=== PATIENT | female | born 1955 | race Caucasian/White ===

== ENCOUNTER 2017-11-10 07:26 | Outpatient (CLI) | payer OTHER ==
--- NOTE | 2017-11-10 09:32 | CT ---
CT ABDOMEN AND PELVIS WITH AND WITHOUT CONTRAST: History: Hematuria. Comparison: CT from outside facility, 08-27-12. FINDINGS: Lung bases are clear. No pericardial effusion. There is no nephroureterolithiasis or hydroureteral nephrosis. No secondary evidence of recently pass ed stone. There is mild prominence of the ureters without overt hydroureteronephrosis. No abnormal renal enhancing mass. No filling defects within the renal collecting systems. Mild enthesopathic changes of the adductor lo ngus muscles bilaterally from the origin of the pubic body. Moderate facet arthrosis, lower lumbar spine. Hepatic cysts are similar. There is cholelithiasis. The spleen is unremarkable. 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 There is mild atrophy of the indirect head of the rectus femoris muscles bilaterally. IMPRESSION: 1. No nephroureterolithiasis or hydroureteronephrosis. No secondary evidence of recently passed stone . 2. Multifocal hepatic cysts. A few of these have increased in size. 3. Cholelithiasis. 4. Dilatation of gonial veins can be seen with pelvic congestion syndrome. 5. Mild atrophy of the indirect heads of the bilateral rectus femoris muscles bilaterally. 6. No abnormal renal enhancing mass. No filling defects of the renal collecting systems. No abnormal filling defect in the dependent portion of the urinary bladder. POS: DUC
[2017-11-10] MEDS ORDERED: Iopamidol 370 76% 100 ML VIAL ONE (12:44)
== END 2017-11-10 07:27 | disposition home or self-care (01) ==
LOC: CT 07:26
PROVIDERS: ATTEND Urology
DX: R31.9 Hematuria, unspecified (principal); K76.89 Other specified diseases of liver; K80.20 Calculus of gallbladder without cholecystitis without obstruction; I86.8 Varicose veins of other specified sites
CPT/HCPCS: 74178; 82565

== ENCOUNTER 2019-05-18 13:38 | Outpatient (CLI) | payer OTHER, SELFPAY ==
--- NOTE | 2019-05-18 14:21 | MMO ---
Bilateral MAMMO Bilat Screen [facility]. CLINICAL HISTORY: Patient is 63 years old and is seen for screening. The patient has the following family history of breast cancer: maternal aunt. The patient has no personal history of cancer. VIEWS: The views performed were: bilateral craniocaudal with tomosynthesis and bilateral mediolateral oblique with tomosynthesis. FILMS COMPARED: The present examination has been compared to prior imaging studies performed at [facility] on 12/22/2013, 12/25/2014, 04/22/2016 and 06/02/2017. MAMMOGRAM FINDINGS: The breasts are heterogeneously dense, which could obscure a lesion on mammography. There are stable benign appearing calcifications seen in both breasts. There are no suspicious masses, suspicious calcifications, or new areas of architectural distortion. IMPRESSION: THERE IS NO MAMMOGRAPHIC EVIDENCE OF MALIGNANCY. A ROUTINE FOLLOW-UP MAMMOGRAM IN 1 YEAR IS RECOMMENDED. THE RESULTS OF THIS EXAM WERE SENT TO THE PATIENT. ACR BI-RADS Category 2 - Benign finding MAMMOGRAPHY NOTE: 1. A negative mammogram report should not delay a biopsy if a dominant of clinically suspicious mass is present. 2. Approximately 10% to 15% of breast cancers are not detected by mammography. 3. Adenosis and dense breasts may obscure an underlying neoplasm. Reported by: CALLUM GRIFFIN MD Electonically Signed: [id number]
== END 2019-05-18 13:39 | disposition home or self-care (01) ==
LOC: BICMAMMO 13:38
PROVIDERS: ATTEND Family Medicine
DX: Z12.31 Encounter for screening mammogram for malignant neoplasm of breast (principal); Z80.3 Family history of malignant neoplasm of breast
CPT/HCPCS: 77063; 77067